=== PATIENT | male | born 1970 | race Caucasian/White ===

== ENCOUNTER 2024-07-19 13:35 | Emergency (ER) | payer MEDICAID ==
[~2024-07-19] VITALS: Ht 180.3 cm; Wt 68.0 kg
[2024-07-19 13:45] VITALS: BP 164/101; PULSE 102; O2SAT 96
[2024-07-19] MEDS ORDERED: HYDR-3965 PO (15:04)
[2024-07-19] MEDS: HYDROcodone/acetaminophen 10/325mg tab PO ONE (15:14)
[2024-07-19 15:15] VITALS: RESP 16
[2024-07-19] MEDS: ketorolac trometh 30MG/ML vial 30 MG/ML VIAL IM ONE (15:15)
[2024-07-19 15:23] VITALS: TEMP 98.7
== END 2024-07-19 15:24 | disposition home or self-care (01) ==
LOC: ER 13:35
DX: S22.31XA Fracture of one rib, right side, initial encounter for closed fracture (principal); X58.XXXA Exposure to other specified factors, initial encounter; Y93.89 Activity, other specified; Y92.89 Other specified places as the place of occurrence of the external cause; Y99.8 Other external cause status
CPT/HCPCS: 71100; 96372; 99283; J1885